=== PATIENT | female | born 1960 | race Caucasian/White ===

== ENCOUNTER 2025-02-14 16:53 | Observation (INO) | payer MEDICARE, OTHER ==
[2025-02-14] MEDS: MORPHINE SULFATE 4 MG/ML SYRINGE IV STA ×2 (17:07→21:30)
--- NOTE | 2025-02-14 17:24 | ED ---
Extremity Problem HPI - General Stated complaint: Fall-Left Ankle Injury Time Seen by Provider: 02/14/25 16:56 Source: patient, EMS Mode of arrival: EMS Limitations: no limitations - History of Present Illness Initial comments: This patient is a 64-year-old woman arriving by ambulance to have evaluation of left ankle pain. Patient states that she was trying to get onto the scooter, she put her leg over and in the process lost balance and fell injuring left lower leg/ankle. EMS was called, they provided the splint because the patient was not able to get up or bear weight. They gave analgesia through IV that they started and transported her here. The patient denies weakness or numbness distal to the injury. She denies any other injury in the fall. MD Complaint: extremity pain -: minutes(s) Location: left, lower extremity History of Same: No Radiation: none Quality: sharp Consistency: constant Improves with: other (Splinting) Worsens with: other (Movement) Associated Symptoms: denies other symptoms - Related Data Home Medications Medication Instructions Recorded Confirmed Cariprazine HCl [Vraylar] 4.5 mg PO DAILY 02/15/25 02/15/25 Losartan Potassium 50 mg PO DAILY 02/15/25 02/15/25 Sertraline [Zoloft] 200 mg PO DAILY 02/15/25 02/15/25 Valbenazine Tosylate [Ingrezza] 80 mg PO DAILY 02/15/25 02/15/25 buPROPion XL [Wellbutrin XL] 300 mg PO DAILY 02/15/25 02/15/25 methocarbamoL [Robaxin-750] 1,500 mg PO QID PRN 02/15/25 02/15/25 Previous Rx's Medication Instructions Recorded HYDROcodone/APAP 5-325MG [[place] 1 tab PO Q4HR PRN 3 Days #18 tab 02/14/25 5-325] Apixaban [Eliquis] 2.5 mg PO BID #70 tab 02/17/25 Omeprazole 20 mg PO DAILY #30 tab 02/17/25 Sennosides-Docusate Sodium 1 tab PO BID PRN #60 tablet 02/17/25 [Senokot-S] Allergies Allergy/AdvReac Type Severity Reaction Status Date / Time Botulinum Toxin Allergy Anaphylaxis Verified 02/15/25 10:34 diclofenac [From Cataflam] Allergy Anaphylaxis Verified 02/15/25 10:34 risperidone [From Risperdal] Allergy Anaphylaxis Verified 02/15/25 10:34 gabapentin AdvReac Unknown Verified 02/15/25 10:34 trazodone AdvReac Unknown Verified 02/15/25 10:34 Review of Systems ROS Statement: Those systems with pertinent positive or pertinent negative responses have been documented in the HPI. ROS Other: All systems not noted in ROS Statement are negative. Constitutional: Denies: fever, chills, weakness Respiratory: Denies: cough, dyspnea Cardiovascular: Denies: chest pain, palpitations Gastrointestinal: Denies: abdominal pain, vomiting Musculoskeletal: Reports: joint swelling, arthralgia. Denies: back pain Skin: Denies: rash Neurological: Denies: headache, weakness, numbness, paresthesias Past Medical History Past Medical History: COPD, Hyperlipidemia, Hypertension History of Any Multi-Drug Resistant Organisms: None Reported Past Surgical History: Appendectomy, Cholecystectomy, Joint Replacement, Orthopedic Surgery Additional Past Surgical History / Comment(s): Partial hysterectomy, double knee replacement Past Psychological History: Anxiety, Depression, Schizoaffective Disorder Smoking Status: Vaper Past Alcohol Use History: Rare Past Drug Use History: None Reported General Exam Limitations: no limitations General appearance: alert, in no apparent distress Head exam: Present: atraumatic, normocephalic Eye exam: Present: normal appearance Neck exam: Present: normal inspection, full ROM. Absent: tenderness Respiratory exam: Present: normal lung sounds bilaterally. Absent: respiratory distress, wheezes, rales, rhonchi, stridor, chest wall tenderness Cardiovascular Exam: Present: regular rate, normal rhythm, normal heart sounds. Absent: systolic murmur, diastolic murmur, rubs, gallop GI/Abdominal exam: Present: soft. Absent: distended, tenderness, guarding, rebound Left Hip exam: Present: normal inspection. Absent: tenderness, swelling Upper Leg exam: Present: normal inspection. Absent: tenderness, swelling Knee exam: Present: normal inspection. Absent: tenderness, swelling Ankle exam: Present: deformity Foot/Toe exam: Present: normal inspection. Absent: tenderness, swelling, la ceration, deformity Neurovascular tendon exam: Present: no vascular compromise. Absent: pulse deficit, abnormal cap refill, motor deficit, sensory deficit, tendon deficit Course Vital Signs 0602/14/25 02/14/25 16:59 18:14 18:40 Temperature 98.0 F Pulse Rate 107 H 86 120 H Respiratory 18 20 18 Rate Blood Pressure 101/85 123/71 110/50 O2 Sat by Pulse 100 95 100 Oximetry 02/14/25 02/14/25 02/14/25 18:46 18:48 18:51 Temperature Pulse Rate 100 100 98 Respiratory 18 18 18 Rate Blood Pressure 66/30 95/63 101/61 O2 Sat by Pulse 100 100 100 Oximetry 02/14/25 02/14/25 02/14/25 20:00 21:00 22:00 Temperature Pulse Rate 104 H 100 100 Respiratory 18 18 18 Rate Blood Pressure 102/72 101/65 91/65 O2 Sat by Pulse 100 98 100 Oximetry 02/14/25 02/15/25 23:42 01:01 Temperature Pulse Rate 93 100 Respiratory 18 20 Rate Blood Pressure 104/76 98/59 O2 Sat by Pulse 97 Oximetry Procedures - Orthopedic Fracture Reduction Fracture #1 Consent Obtained: written consent Side: left Fracture Reduction Location: tibia, fibula Analgesia: procedural sedation Technique: direct manipulation Post Reduction X-rays Demonstrate: other Post-Reduction Neuro Exam: intact Post-Reduction Vascular Exam: intact Splint Applied: Yes Patient Tolerated Procedure: no complications - Procedural Sedation *Risks,benefits, and alternative therapies discussed?: Yes *Patient indicates understanding of risk/benefit discussion?: Yes *Indications: fracture/dislocation reduction *Previous Adverse Reaction to Anesthesia/Sedation?: No Reason Test Not Complete:: Age > 60 *ASA Class: II *Mallampati Airway Score: 3 Preparation: clinical lab assistant applied, pulse oximeter, capnometry used, supplemental O2 applied, suction/airway equipment at bedside, IV secured IV Propofol Dose (mgs): 100 Complications: none Patient Tolerated Procedure: well, no complications Medical Decision Making - Medical Decision Making The patient had x-ray of the distal tib-fib that did reveal fracture of the a nkle and also midshaft fibular fracture with moderate posterolateral displacement The patient had 2 subsequent postreduction films that I interpreted as not markedly improved reduction. Was pt. sent in by a medical professional or institution (, PA, SHIP BOSS, urgent care, hospital, or half-way...) When possible be specific @ -[No] Did you speak to anyone other than the patient for history (EMS, parent, family, police, friend...)? What history was obtained from this source @ -[No] Did you review nursing and triage notes (agree or disagree)? Why? @ -[I reviewed and agree with nursing and triage notes] Were old charts reviewed (outside hosp., previous admission, EMS record, old EKG, old radiological studies, urgent care reports/EKG's, half-way records)? Report findings @ -[No old charts were reviewed] Differential Diagnosis (chest pain, altered mental status, abdominal pain women, abdominal pain men, vaginal bleeding, weakness, fever, dyspnea, syncope, headache, dizziness, GI bleed, back pain, seizure, CVA, palpatations, mental health, musculoskeletal)? @ -Differential Musculoskeletal Muscular strain, contusion, ligament sprain, fracture, arthritis, septic arthritis, bursitis, cellulitis, muscle spasm, nerve compression, DVT, arterial occlusion, herpes zoster, electrolyte abnormality, tumor.... This is not meant to be in all inclusive list EKG interpreted by me (3pts min.). @ -[As above] X-rays interpreted by me (1pt min.). @ -[I interpreted as above CT interpreted by me (1pt min.). @ -[None done] U/S interpreted by me (1pt. min.). @ -[None done] What testing was considered but not performed or refused? (CT, X-rays, U/S, labs)? Why? @ -[None] What meds were considered but not given or refused? Why? @ -[None] Did you discuss the management of the patient with other professionals (professionals i.e. , PA, SHIP BOSS, lab, RT, psych nurse, delinquency prevention social worker, hydraulic specialist, teacher, customer service officer, case manager specialist)? Give summary @ -[I discussed the case with Dr. Braga who is the orthopedic surgeon on- call and his recommendation was to admit the patient to have the OR reduction with either internal fixation or external fixator as a temporizing measure. I discussed this with the patient who did agree to stay. CT scans were ordered for surgical planning Was smoking cessation discussed for >3mins.? @ -[No] Was critical care preformed (if so, how long)? @ -[No] Were there social determinants of health that impacted care today? How? (Homelessness, low income, unemployed, alcoholism, drug addiction, transportation, low edu. Level, literacy, decrease access to med. care, senior care, rehab)? @ -[No] Was there de-escalation of care discussed even if they declined (Discuss DNR or withdrawal of care, Hospice)? DNR status @ -[No] What co-morbidities impacted this encounter? (DM, HTN, Smoking, COPD, CAD, Cancer, CVA, ARF, Chemo, Hep., AIDS, mental health diagnosis, sleep apnea, morbid obesity)? @ -[None] Was patient admitted / discharged? Hospital course, mention meds given and route, prescriptions, significant lab abnormalities, going to OR and other perti nent info. @ -[Patient is admitted to have further orthopedic care. Undiagnosed new problem with uncertain prognosis? @ -[No] Drug Therapy requiring intensive monitoring for toxicity (Heparin, Nitro, Insulin, Cardizem)? @ -[No] Were any procedures done? @ -[Yes 2 attempts at reduction and then splinting were performed by myself without adequate anatomic reduction Diagnosis/symptom? @ -[Acute ankle fracture Acute midshaft fibula fracture Acute, or Chronic, or Acute on Chronic? @ -[Acute Uncomplicated (without systemic symptoms) or Complicated (systemic symptoms)? @ -[Uncomplicated Side effects of treatment? @ -[No] Exacerbation, Progression, or Severe Exacerbation? @ -[No] Poses a threat to life or bodily function? How? (Chest pain, [place], PR, pneumonia, PE, COPD, DKA, ARF, appy, cholecystitis, CVA, Diverticulitis, Homicidal, Suicidal, threat to staff... and all critical care pts) @ -[Yes there is threat to limb function without appropriate orthopedic care All treatments are based on ideal body weight as in ED triage - Lab Data Result diagrams: 02/16/25 03:24 02/16/25 03:24 Disposition Clinical Impression: Fibula fracture, Ankle fracture Disposition: HOME SELF-CARE Condition: Good Is patient prescribed a controlled substance at d/c from ED?: Yes When asked, does pt state using other controlled substances?: No If prescribed controlled substance>3 days was MAPS reviewed?: Prescribed <3 Days If opioid is for acute pain is fill amount 7 days or less?: Yes If Rx opioid, was Start Talking consent form obtained?: Yes
--- NOTE | 2025-02-14 18:19 | XR ---
EXAMINATION TYPE: XR tibia fibula LT DATE OF EXAM: 02/14/2025 5:33 PM COMPARISON: None. CLINICAL INDICATION: Female, 64 years old with history of fall injury, pain TECHNIQUE: 2 view(s) obtained. FINDINGS: There is a left knee prosthesis present. There is an oblique fracture of the proximal diaphyseal left fibula. There is fracture of the medial malleolus and lateral malleolus with displacement of the talus nearly completely off of the distal ti arlene. IMPRESSION: 1. Fracture of the distal medial lateral malleoli with subluxation of the talus laterally. 2. Additional oblique fracture proximal diaphyseal fibula. [facility], , 02/14/2025 6:17 PM
--- NOTE | 2025-02-14 18:21 | XR ---
EXAMINATION TYPE: XR ankle limited LT DATE OF EXAM: 02/14/2025 5:33 PM COMPARISON: None. CLINICAL INDICATION: Female, 64 years old with history of fall injury, pain TECHNIQUE: 3 view(s) obtained. FINDINGS: There is lateral subluxation with nearly complete dislocation of the talus laterally in relation to t he distal tibia. There is avulsion of the medial malleolus which accompanies the talus and displaceme nt on the lateral malleolus distal fracture fragment laterally. Overlying soft tissue swelling is pre sent. Posterior tibial fracture is not identified. IMPRESSION: 1. Fracture of the medial and lateral malleolar with near complete dislocation of the talus laterall y. [facility], , 02/14/2025 6:18 PM
[2025-02-14] MEDS: PROPOFOL 10 MG/ML 20 ML VIAL IV ONE ×2 (18:40→21:51)
--- NOTE | 2025-02-14 20:03 | XR ---
EXAMINATION TYPE: XR ankle limited LT DATE OF EXAM: 02/14/2025 7:27 PM COMPARISON: None. CLINICAL INDICATION: Female, 64 years old with history of post reduction, pain TECHNIQUE: 2 view(s) obtained. FINDINGS: Partial reduction of a dislocation of the talus. The medial malleolus remains displaced medially betw een the talus and the tibia. There is partial reduction of the subluxation. In the lateral projection there may be some posterior dislocation of the talus in relation to the tibia. IMPRESSION: 1. Partial reduction of the subluxed talus. Talus currently may be partially posteriorly subluxed wi th incomplete reduction towards the medial aspect of the tibia. The medial malleolar fracture fragmen t may lie between the talus and the tibia [facility], , 02/14/2025 8:01 PM
[2025-02-14] MEDS ORDERED: MAG HYDROX/AL HYDROX/SIMETH 30 ML CUP PO PRN (22:19)
[2025-02-14] MEDS ORDERED: NALOXONE 0.4 MG/ML 1 ML VIAL IV PRN (22:19)
[2025-02-14] MEDS ORDERED: TEMAZEPAM 15 MG CAP PO PRN (22:19)
[2025-02-14] MEDS ORDERED: ACETAMINOPHEN TAB 325 MG TAB PO PRN (22:19)
[2025-02-14 23:36] LABS: Basophils # (A) 0.06 10*3/uL (0.00-0.10); Basophils % (A) 0.6 %; Eosinophils # (A) 0.01 10*3/uL (0.04-0.35); Eosinophils % (A) 0.1 %; HCT 36.9 % (37.2-46.3); HGB 11.8 g/dL (12.0-15.0); Lymphocytes # (A) 0.83 10*3/uL (0.90-5.00); Lymphocytes % (A) 8.6 %; MCH 29.1 pg (27.0-32.0); MCV 91.1 fL (80.0-97.0); Mean Platelet Volume 10.6 fL (9.5-12.2); Monocytes % (A) 7.3 %; Neutrophils # (A) 8.03 10*3/uL (1.80-7.70); Neutrophils % (A) 83.2 %; Platelet Count 147 10*3/uL (140-440); RBC 4.05 10*6/uL (4.10-5.20); RDW 13.9 % (11.5-14.5); WBC 9.65 10*3/uL (4.50-10.00)
[2025-02-14 23:48] LABS: ALT 142 U/L (4-34); AST 380 U/L (14-36); African American GFR (CKD) >90 (>60 ml/min/1.73 sqM); Albumin 3.2 g/dL (3.5-5.0); Alkaline Phosphatase 145 U/L (38-126); Anion Gap 7 mmol/L; Blood Urea Nitrogen 13 mg/dL (7-17); Calcium 8.6 mg/dL (8.4-10.2); Carbon Dioxide 23 mmol/L (22-30); Chloride 106 mmol/L (98-107); Glucose 100 mg/dL (74-99); Non-African American GFR(CKD) >90 (>60 ml/min/1.73 sqM); Potassium 4.1 mmol/L (3.5-5.1); Sodium 136 mmol/L (137-145); Total Bilirubin 1.2 mg/dL (0.2-1.3); Total Protein 5.7 g/dL (6.3-8.2)
--- NOTE | 2025-02-14 23:52 | XR ---
EXAM: XR Left Ankle Complete, 3 Views CLINICAL HISTORY: post reduction TECHNIQUE: Frontal, lateral and oblique views of the left ankle. COMPARISON: Same day at 5:25 p.m. and 7:19 p.m. current exam has a time stamp of 02/14/25, 9:59 p.m. FINDINGS: Bones/joints: Cast obscures bone and soft tissue details. Talus remains laterally subluxed relative to plafond by about 12 mm, better seen on CT from today. Trimalleolar fracture is again noted. Soft tissues: Associated surrounding soft tissue swelling without gas. IMPRESSION: Talus remains laterally subluxed relative to plafond by about 12 mm, better seen on CT from today. Trimalleolar fracture is again noted.
[2025-02-14] MEDS: SODIUM CHLORIDE 0.9% 1,000 ML IV SCH (23:54)
[2025-02-15 00:14] LABS: INR 0.9 (<1.2); Prothrombin Time 10.4 sec (10.0-12.5)
--- NOTE | 2025-02-15 00:22 | CT ---
EXAM: CT Left Lower Extremity Without Intravenous Contrast, Ankle CLINICAL HISTORY: eval fracture TECHNIQUE: Axial computed tomography images of the left ankle without intravenous contrast. Coronal and sagittal reconstructions are performed. CTDI is 8. 5 mGy and DLP is 276 mGy-cm. This CT exam was performed using one or more of the following dose reduction techniques: automated exposure control, adjustment of the mA and/or kV according to patient size, and/or use of iterative reconstruction technique. 478 images COMPARISON: No relevant prior studies available. FINDINGS: Bones/joints: Talus remains laterally subluxed by about 13 mm and dorsally subluxed by about 9 mm. Trimalleolar fractures. Soft tissues: Associated soft tissue swelling without gas. IMPRESSION: 1. Talus remains laterally subluxed by about 13 mm and dorsally subluxed by about 9 mm. 2. Trimalleolar fractures.
[2025-02-15 00:30] LABS: Partial Thromboplastin Time 20.3 sec (22.0-30.0)
[2025-02-15] MEDS: MORPHINE SULFATE 4 MG/ML SYRINGE IV PRN (02:03)
[2025-02-15] MEDS: PANTOPRAZOLE 40 MG/10 ML VIAL IV SCH (08:07)
[2025-02-15 09:36] LABS: HCT 36.5 % (37.2-46.3); HGB 11.6 g/dL (12.0-15.0); MCH 29.4 pg (27.0-32.0); MCHC 31.8 g/dL (32.0-37.0); MCV 92.6 fL (80.0-97.0); Mean Platelet Volume 10.9 fL (9.5-12.2); Platelet Count 153 10*3/uL (140-440); RBC 3.94 10*6/uL (4.10-5.20); RDW 13.9 % (11.5-14.5); WBC 5.38 10*3/uL (4.50-10.00)
[2025-02-15 09:52] LABS: ALT 272 U/L (4-34); AST 408 U/L (14-36); African American GFR (CKD) >90 (>60 ml/min/1.73 sqM); Albumin 3.3 g/dL (3.5-5.0); Albumin/Globulin Ratio 1.4; Alkaline Phosphatase 183 U/L (38-126); Anion Gap 5 mmol/L; Blood Urea Nitrogen 11 mg/dL (7-17); Calcium 8.5 mg/dL (8.4-10.2); Carbon Dioxide 27 mmol/L (22-30); Chloride 106 mmol/L (98-107); Globulin 2.4 g/dL; Glucose 93 mg/dL (74-99); Magnesium 1.9 mg/dL (1.6-2.3); Non-African American GFR(CKD) 82 (>60 ml/min/1.73 sqM); Potassium 3.9 mmol/L (3.5-5.1); Sodium 138 mmol/L (137-145); Total Bilirubin 2.2 mg/dL (0.2-1.3); Total Protein 5.7 g/dL (6.3-8.2)
--- NOTE | 2025-02-15 11:04 | P.CONS ---
History of Present Illness - Reason for Consult Consult date: 02/15/25 Medical Management Requesting physician: Owen Braga - History of Present Illness History of Presenting Illness: Patient is a pleasant 64-year-old female with a past medical history of hyper tension, COPD, anxiety with depression, schizoaffective disorder, and nicotine use via vaping. She presented to our facility on 02/14/2025 status post fall with left ankle pain. She underwent evaluation in the emergency department. Vital signs upon arrival show blood pressure 101/85, heart rate 107, respiratory rate 18, temp 98.0 F, and SpO2 100% on room air. X-ray left tib-fib showing fracture of the distal medial lateral malleoli with subluxation of the talus laterally and an additional oblique fracture of the proximal diaphyseal fibula. X-ray ankle completed showing fracture of the medial and tibial malleoli are with near complete dislocation of the talus laterally. Attempts were made at closed reduction in the emergency department unsuccessful. Patient underwent a CT left ankle which revealed talus remains laterally subluxed about 13 mm and dorsally subluxed about 9 mm along with trimalleolar fractures. Patient was admitted under orthopedic surgery team and we were consulted for medical management. Labs were completed and reviewed. CBC showing normocytic anemia with hemoglobin of 11.8. Coagulation profile showing a low PTT of 20.3. BMP showing sodium 136 and glucose of 100. Liver profile showing transaminitis with AST of 380, ALT of 142, and alkaline phosphatase of 145. Patient is scheduled to undergo ORIF of left ankle later today with Dr. Braga. Review of systems: Pertinent positives and negatives as discussed in HPI, a complete review of systems was performed and all other systems are negative. Physical exam: Vital signs reviewed and stable. General: Nontoxic, no distress and appears stated age. Derm: Skin warm and dry, normal coloration for ethnicity. Head: Atraumatic, normocephalic and symmetric. Eyes: EOM's intact, no lid lag, and anicteric sclera Mouth: no lip lesions, mucus membranes moist Cardiovascular: regular rate and rhythm with normal S1S2, no murmur, positive posterior tibial pulses bilaterally, and cap refill < 2 seconds. Lungs: Respirations even, regular, and unlabored on room air. Lungs CTA bilaterally, no rhonchi, no rales, no wheezing, and no accessory muscle usage. Abdominal: soft, nontender to palpation, no guarding, no appreciable organomegaly Ext: No gross muscle atrophy, no edema, no contractures. Left lower extremity in Ortho-Glass splint. Patient reports movement and sensation intact to toes. Neuro: Speech clear, face symmetrical and CN II-XII grossly intact with no noted focal neuro deficits Psych: Alert and oriented to person, place, time, and situation. Appropriate and pleasant affect. Assessment and Plan of Care: Trimalleolar fracture with complete dislocation and proximal diaphyseal fibula - Patient is scheduled for ORIF with Dr. Braga later today. - Patient is at an increased risk to undergo surgical procedure however as discussed with patient and orthopedic surgeon in detail, there are no absolute contraindications for patient to undergo urgent surgical stabilization/repair of dislocated ankle. Hyperbilirubinemia with transaminitis, unclear etiology - Patient reports she was previously told years ago that she had some elevation in her liver enzymes but never followed up. She denies having any abdominal pain or discomfort but did report only mild tenderness upon palpation to epigastric region. - Order placed for repeat labs to evaluate if stable or worsening and upon follow-up liver profile showing worsening transaminitis and new hyperbilirubinemia with total bili of 2.2, AST of 408, ALT of 272, and alkaline phosphatase of 183. - Order placed for CT abdomen and pelvis which revealed mild biliary dilation with a prominent common bile duct. - Consult placed to log rafter and discussed plan of care with gastroenterology CIRCULAR CLERK recommending patient be n.p.o. after midnight for possible ERCP tomorrow. Gastroenterology CIRCULAR CLERK stated from GI perspective patient may proceed without any absolute contraindications with planned ORIF of left ankle as scheduled later today with Dr. Braga. Hypertension Vital signs currently stable with blood pressure 105/68 heart rate of 86. Continue to monitor vital signs closely and patient to resume daily medication r egimen with losartan 50 mg daily. Anxiety with depression Schizoaffective disorder Continue daily medication regimen with sertraline 200 mg daily, Vraylar 4.5 mg daily, Wellbutrin 300 mg daily, and Ingrezza 80 mg daily. COPD, not in acute exacerbation - Patient denies use of home inhalers. Does admit to continued vaping but declines wanting nicotine patch at this time. - Encourage use of incentive spirometry during postoperative period. Data and imaging reviewed: As stated above in HPI Thank you for allowing us to participate in the care of this pleasant patient. Do not hesitate to contact us with questions. Someone can be reached from the [facility] hospitalist group all hours of the day at [phone] or via perfect serve. Patient was seen independently by Nurse Practitioner. This document was prepared using [employer] dictation software. Please allow for errors in mammography technician while rare they do occur. Jose Mandel NP rendered care for this patient independently, reviewed the findings and plan as documented in the note above and agree with plan. I did not physically speak with or examine the patient on this date. Past Medical History Past Medical History: COPD, Hyperlipidemia, Hypertension History of Any Multi-Drug Resistant Organisms: None Reported Past Surgical History: Appendectomy, Cholecystectomy, Joint Replacement, Orthopedic Surgery Additional Past Surgical History / Comment(s): Partial hysterectomy, double knee replacement Past Psychological History: Anxiety, Depression, Schizoaffective Disorder Smoking Status: Vaper Past Alcohol Use History: Daily Past Drug Use History: None Reported Medications and Allergies Home Medications Medication Instructions Recorded Confirmed Type HYDROcodone/APAP 5-325MG [[place] 1 tab PO Q4HR PRN 3 Days #18 tab 02/14/25 Rx 5-325] Cariprazine HCl [Vraylar] 4.5 mg PO DAILY 02/15/25 02/15/25 History Losartan Potassium 50 mg PO DAILY 02/15/25 02/15/25 History Sertraline [Zoloft] 200 mg PO DAILY 02/15/25 02/15/25 History Valbenazine Tosylate [Ingrezza] 80 mg PO DAILY 02/15/25 02/15/25 History buPROPion XL [Wellbutrin XL] 300 mg PO DAILY 02/15/25 02/15/25 History methocarbamoL [Robaxin-750] 1,500 mg PO QID PRN 02/15/25 02/15/25 History Allergies Allergy/AdvReac Type Severity Reaction Status Date / Time Botulinum Toxin Allergy Anaphylaxis Verified 02/15/25 10:34 diclofenac [From Cataflam] Allergy Anaphylaxis Verified 02/15/25 10:34 risperidone [From Risperdal] Allergy Anaphylaxis Verified 02/15/25 10:34 gabapentin AdvReac Unknown Verified 02/15/25 10:34 trazodone AdvReac Unknown Verified 02/15/25 10:34 Physical Exam Vitals: Vital Signs Temp Pulse Pulse Resp BP BP BP 02/15/25 07:35 86 18 105/68 02/15/25 02:12 20 02/15/25 01:26 97.7 F 94 18 112/60 02/15/25 01:01 100 20 98/59 02/14/25 23:42 93 18 104/76 02/14/25 22:00 100 18 91/65 02/14/25 21:00 100 18 101/65 02/14/25 20:00 104 H 18 102/72 02/14/25 18:51 98 18 101/61 02/14/25 18:48 100 18 95/63 02/14/25 18:46 100 18 66/30 02/14/25 18:40 120 H 18 110/50 02/14/25 18:14 86 20 123/71 02/14/25 16:59 98.0 F 107 H 18 101/85 Pulse Ox 02/15/25 07:35 93 L 02/15/25 02:12 02/15/25 01:26 99 02/15/25 01:01 02/14/25 23:42 97 02/14/25 22:00 100 02/14/25 21:00 98 02/14/25 20:00 100 02/14/25 18:51 100 02/14/25 18:48 100 02/14/25 18:46 100 02/14/25 18:40 100 02/14/25 18:14 95 02/14/25 16:59 100 Intake and Output 02/14/25 02/15/25 02/15/25 22:59 06:59 14:59 Output Total 400 Balance -400 Output: Urine 400 Other: Voiding Method External Catheter Weight 136.078 kg 136.078 kg Results CBC & Chem 7: 02/15/25 08:48 02/15/25 08:48 Labs: Abnormal Lab Results - Last 24 Hours (Table) 02/14/25 02/14/25 02/14/25 Range/Units 23:18 23:18 23:18 RBC 4.05 L (4.10-5.20) 10*6/uL Hgb 11.8 L (12.0-15.0) g/dL Hct 36.9 L (37.2-46.3) % Neutrophils # 8.03 H (1.80-7.70) 10*3/uL Lymphocytes # 0.83 L (0.90-5.00) 10*3/uL Eosinophils # 0.01 L (0.04-0.35) 10*3/uL APTT 20.3 L (22.0-30.0) sec Sodium 136 L (137-145) mmol/L Glucose 100 H (74-99) mg/dL AST 380 H (14-36) U/L ALT 142 H (4-34) U/L Alkaline Phosphatase 145 H (38-126) U/L Total Protein 5.7 L (6.3-8.2) g/dL Albumin 3.2 L (3.5-5.0) g/dL
--- NOTE | 2025-02-15 12:08 | CT ---
EXAMINATION TYPE: CT abdomen pelvis wo con DATE OF EXAM: 02/15/2025 11:39 AM COMPARISON: None. CLINICAL INDICATION: Female, 64 years old with history of incr transaminitis, elevated bili epigastr ic pain, elevated bili and epigastric pain TECHNIQUE: Axial images were obtained from above the diaphragm to the pubic rami in the axial plane a t 5 mm thick sections. Reconstructed images are reviewed on the computer in the coronal plane. CONTRAST: mL of . Study performed without Oral Contrast DLP: 2136.4 mGycm, Automated exposure control for dose reduction was used. FINDINGS: Limited CT sections are obtained the lung bases. The lung bases are clear. CT ABDOMEN: There is a small periumbilical hernia containing mesenteric fat. No loops of bowel are in volved. Liver: Some faint biliary dilatation may be present slightly greater on the left. Common bile ductr m ay be somewhat prominent 1.2 cm. Normal up to 1.0 cm in a postcholecystectomy patient. Consider right upper quadrant ultrasound for additional evaluation. Spleen: Normal Pancreas: Normal Adrenal glands: The adrenal glands are normal. Gallbladder: Not identified. Correlate with the surgical history. Kidneys: No masses are evident. No hydronephrosis is present. No cysts are present. No renal stone s are evident. Aorta: Vascular calcification is within the aorta. Inferior vena cava: Normal. CT PELVIS: Loops of bowel within the abdomen and pelvis are normal. There are loops of bowel which are incom pletely distended or lack oral contrast limiting their evaluation. Appendix: There appears to be the appendix is normal as visualized. No suspicious dilated tubular str uctures or inflammatory changes are evident. Urinary bladder: Normal. Genitourinary structures: Uterus and ovaries are not identified. Osseous structures: No suspicious lytic or sclerotic lesions. IMPRESSION: 1. There may be some mild biliary dilatation present with a prominent common bile duct. The gallblad rashel is not clearly identified. Consider additional evaluation with right upper quadrant abdomen ultra sound. [facility], , 02/15/2025 12:06 PM
[2025-02-15] MEDS: LOSARTAN 50 MG TAB PO SCH (12:44)
[2025-02-15] MEDS: buPROPion XL 300 MG TAB.ER.24H PO SCH (12:44)
[2025-02-15] MEDS: IV FLUID CONTINUATION 1,000 ML IV ONE (13:41)
[2025-02-15] MEDS: ONDANSETRON 4 MG/2 ML VIAL IVP PRN (13:55)
--- NOTE | 2025-02-15 14:03 | P.HPOR ---
History of Present Illness The patient is a very pleasant 64-year-old female with a medical history significant for having a BMI of 48.4 and schizoaffective disorder who was admitted under my care with a displaced left trimalleolar ankle fracture. The patient states that yesterday she was trying to get in her car when she fell. She immediately injured her left ankle. She was brought to the ER where x-rays showed an ankle fracture dislocation. After several unsuccessful attempts at closed reduction and splinting I was called. Both ER doctor and myself felt that due to the patient's unstable ankle fracture and BMI she was unsafe to discharge home. I met with the patient this afternoon to discuss her injury and treatment. The patient normally lives at home with her son. She has bilateral knee replacements done 8 years ago and says they feel "unsteady." She denies alcohol use. Past Medical History Past Medical History: COPD, Hyperlipidemia, Hypertension History of Any Multi-Drug Resistant Organisms: None Reported Past Surgical History: Appendectomy, Cholecystectomy, Joint Replacement, Orthopedic Surgery Additional Past Surgical History / Comment(s): Partial hysterectomy, double knee replacement Past Psychological History: Anxiety, Depression, Schizoaffective Disorder Smoking Status: Vaper Past Alcohol Use History: Daily Past Drug Use History: None Reported Medications and Allergies Home Medications Medication Instructions Recorded Confirmed Type HYDROcodone/APAP 5-325MG [Talmo 1 tab PO Q4HR PRN 3 Days #18 tab 02/14/25 Rx 5-325] Cariprazine HCl [Vraylar] 4.5 mg PO DAILY 02/15/25 02/15/25 History Losartan Potassium 50 mg PO DAILY 02/15/25 02/15/25 History Sertraline [Zoloft] 200 mg PO DAILY 02/15/25 02/15/25 History Valbenazine Tosylate [Ingrezza] 80 mg PO DAILY 02/15/25 02/15/25 History buPROPion XL [Wellbutrin XL] 300 mg PO DAILY 02/15/25 02/15/25 History methocarbamoL [Robaxin-750] 1,500 mg PO QID PRN 02/15/25 02/15/25 History Allergies Allergy/AdvReac Type Severity Reaction Status Date / Time Botulinum Toxin Allergy Anaphylaxis Verified 02/15/25 10:34 diclofenac [From Cataflam] Allergy Anaphylaxis Verified 06/24/25 10:34 risperidone [From Risperdal] Allergy Anaphylaxis Verified 02/15/25 10:34 gabapentin AdvReac Unknown Verified 02/15/25 10:34 trazodone AdvReac Unknown Verified 02/15/25 10:34 Physical Examination The patient resting her [facility]. She is alert and able to answer questions. Her head is normocephalic and atraumatic. Her abdomen is obese. Her bilateral upper extremities and right lower extremity are without deformity. A focused exam of the left lower extremity was conducted. There is a splint on the left leg. There is a healed incision over the anterior aspect of the knee. Her toes are warm and well-perfused with brisk capillary refill. She can actively plantarflex and dorsiflex her ankle and her toes. Results X-rays and CT scan of the ankle knee show a displaced trimalleolar ankle fracture dislocation. There is also a proximal fibula fracture and a total knee replacement with a short stem. - Labs Labs: Abnormal Lab Results - Last 24 Hours (Table) 02/14/25 02/14/25 02/14/25 Range/Units 23:18 23:18 23:18 RBC 4.05 L (4.10-5.20) 10*6/uL Hgb 11.8 L (12.0-15.0) g/dL Hct 36.9 L (37.2-46.3) % MCHC (32.0-37.0) g/dL Neutrophils # 8.03 H (1.80-7.70) 10*3/uL Lymphocytes # 0.83 L (0.90-5.00) 10*3/uL Eosinophils # 0.01 L (0.04-0.35) 10*3/uL APTT 20.3 L (22.0-30.0) sec Sodium 136 L (137-145) mmol/L Glucose 100 H (74-99) mg/dL Total Bilirubin (0.2-1.3) mg/dL AST 380 H (14-36) U/L ALT 142 H (4-34) U/L Alkaline Phosphatase 145 H (38-126) U/L Total Protein 5.7 L (6.3-8.2) g/dL Albumin 3.2 L (3.5-5.0) g/dL 02/15/25 02/15/25 Range/Units 08:48 08:48 RBC 3.94 L (4.10-5.20) 10*6/uL Hgb 11.6 L (12.0-15.0) g/dL Hct 36.5 L (37.2-46.3) % MCHC 31.8 L (32.0-37.0) g/dL Neutrophils # (1.80-7.70) 10*3/uL Lymphocytes # (0.90-5.00) 10*3/uL Eosinophils # (0.04-0.35) 10*3/uL APTT (22.0-30.0) sec Sodium (137-145) mmol/L Glucose (74-99) mg/dL Total Bilirubin 2.2 H (0.2-1.3) mg/dL AST 408 H (14-36) U/L ALT 272 H (4-34) U/L Alkaline Phosphatase 183 H (38-126) U/L Total Protein 5.7 L (6.3-8.2) g/dL Albumin 3.3 L (3.5-5.0) g/dL H & H 02/14/25 02/15/25 Range/Units 23:18 08:48 Hgb 11.8 L 11.6 L (12.0-15.0) g/dL Hct 36.9 L 36.5 L (37.2-46.3) % Coagulation 02/14/25 Range/Units 23:18 INR 0.9 (<1.2) Result Diagrams: 02/15/25 08:48 02/15/25 08:48 Assessment and Plan Assessment: Left trimalleolar ankle fracture dislocation with unsuccessful attempts at closed reduction and splinting Left proximal fibula fracture BMI 48.4 Prior left total knee arthroplasty Schizoaffective disorder Elevated liver enzymes Plan: I met with the patient to discuss treatment options. She had several attempts at closed reduction and splinting in the ER that were unsuccessful. Her ankle is still subluxed. The patient lives in [facility] and wishes to have definitive fixation closer to home and states she already has an established orthopedic surgery group there having previously had total knee replacements. We also discussed that swelling in the left ankle may prevent definitive fixation at this time. Given all this I think the patient would be best treated with closed reduction and application of an ankle spanning external fixator to allow resolution of swelling and definitive treatment closer to home. We discussed the procedure at length. The patient agrees with this and thinks it is in her best interest. We will plan for a closed reduction and ankle external fixator later today. She understands that she will need follow-up closer to home for definitive fixation. Time with Patient: Greater than 30
[2025-02-15] MEDS ORDERED: LIDOCAINE 4% LTA KIT (4 ML) TOPICAL ONE (14:05)
[2025-02-15] MEDS ORDERED: WATER FOR INJECTION, STERILE 10 ML VIAL IV ONE (14:05)
[2025-02-15] MEDS ORDERED: PHENYLEPHRINE-0.9% NACL SYG 1,000 MCG/10 ML SYRINGE ONE (14:05)
[2025-02-15] MEDS ORDERED: LIDOCAINE 2% (PF) 20 MG/ML 5 ML VIAL ONE (14:05)
[2025-02-15] MEDS ORDERED: GLYCOPYRROLATE 0.2 MG/ML 2 ML VIAL ONE (14:05)
[2025-02-15] MEDS ORDERED: ROCURONIUM 10 MG/ML (5 ML VIAL) IV ONE (14:05)
[2025-02-15] MEDS ORDERED: PROPOFOL 10 MG/ML 20 ML VIAL IV ONE (14:05)
[2025-02-15] MEDS ORDERED: fentaNYL (PF) 50 MCG/ML 2 ML AMP ONE (14:05)
[2025-02-15] MEDS ORDERED: SUCCINYLCHOLINE CHLORIDE 200 MG/10 ML VIAL IV ONE (14:05)
[2025-02-15] MEDS ORDERED: ePHEDrine 50 MG/ML 1 ML VIAL ONE (14:05)
[2025-02-15] MEDS: SODIUM CHLORIDE 0.9% 50 ML with ceFAZolin 3,000 MG IV ONE (14:09)
[2025-02-15] MEDS: LACTATED RINGERS 1,000 ML IV ONE (15:13)
--- NOTE | 2025-02-15 15:36 | P.OP ---
Date of Procedure: 02/15/25 Preoperative Diagnosis: 1. Closed left trimalleolar ankle fracture dislocation 2. Left proximal fibula fracture 3. BMI 48.4 4. Prior left total knee replacement 5. Schizoaffective disorder Postoperative Diagnosis: Same Procedure(s) Performed: 1. Application of left ankle spanning external fixator as part of a staged procedure 2. Closed reduction left ankle fracture dislocation Anesthesia: GETA Surgeon: Owen Braga Fun House Attendant #1: Clement Paris Estimated Blood Loss (ml): 25 IV fluids (ml): 300 Pathology: none sent Condition: stable Disposition: PACU Indications for Procedure: The patient is a very pleasant 64-year-old female with multiple medical issues including having a BMI of 48.4 who was getting into her car yesterday when she fell and injured her left ankle. She presented to our ER where several attempts at closed reduction and splinting were performed by the emergency department physician. After 3 attempts he was unable to reduce and keep the ankle reduced in a splint. I recommended admitting the patient under my care. This afternoon I met with her and discussed her injury. The patient lives in [facility] and would like to follow-up with her previously established orthopedic surgeon there. My recommendation was to reduce her ankle and place an ankle spanning external fixator to temporize her ankle and allow for resolution of soft tissue swelling. The patient agreed and requested this as she stated it was in her best interest. We discussed the potential risks and complications of an ankle external fixator including but is really limited to risks from anesthesia, superficial infection, deep infection, pin site complications including infection and/or fracture, subluxation or dislocation of the ankle, pressure sores, DVT, PE, other medical complications, and possibly loss of life or limb. The patient also understands that this is a temporizing procedure and she will need definitive fixation in 10 to 14 days. Description of Procedure: The patient was identified in preoperative holding and the correct left ankle was marked with my initials. I reviewed the consent form with the patient. All of her questions were answered. The patient was then brought back to the operating room by anesthesia. She was positioned on the OR table where general anesthetic and preoperative antibiotics were given. A tourniquet was not used during surgery. A bone foam ramp was placed onto the left leg to facilitate imaging. A foam pad was placed under the contralateral right leg and secured to the table with tape. Both arms were well-padded and placed at her side. A nonsterile 1015 drape was used to occlude the left leg. A presurgical scrub was performed using a chlorhexidine scrub brush and water. A timeout was then performed identifying the correct patient, operative extremity, and procedure. At this point the splint placed by the emergency department was removed. There was diffuse tense swelling with no wrinkling of the skin over both the medial and lateral malleolus. There was skin at risk over the medial malleolus with a small pressure blister forming. I began by performing a closed reduction of the ankle using the Tracy maneuver. Fluoroscopy was then used to assess the reduction. The ankle appeared to be relatively well reduced on a mortise and lateral view. The left leg was then prepped and draped in the standard sterile fashion. I began by using fluoroscopy to cheryl out the midshaft of the tibia. 2 stab incisions were made using the corresponding guide from the external fixator site. A drill was used to create threaded holes and then both pins were placed by hand engaging both cortices. Their position was checked with biplanar fluoroscopy. I then made a stab incision over the medial aspect of the ca lcaneus. Dissection was carried down with a hemostat. A centrally threaded transcalcaneal pin was then placed under fluoroscopic guidance. I then used the pin to bar clamps and graphite rods to create a delta frame. Gentle traction was pulled and fluoroscopy was used to verify reduction of the ankle. All pins were then tightened. A kickstand was placed under the posterior ankle to prevent pressure sore. Final fluoroscopic images were taken including a mortise which showed anatomic reduction of the ankle and a true lateral which showed the talus nicely centered under the plafond. Proximally the pin sites looked appropriately positioned. Sterile sponges were soaked in Betadine and then cut and placed around the pin sites followed by Geovany. An Ravindra wrap was applied over the ankle. The patient was then transferred off of the operating table, extubated, and brought to recovery having tolerated the procedure well. Clement Paris PA-C was required as a skilled assistant plant control operator for patient positioning, draping, retraction, and application of dressings. PLAN: The patient is to be non-weight bearing on her left leg. DVT prophylaxis with Eliquis 2.5 mg BID given the patient's BMI and history of fracture. Leave dressing in place. The patient is ok to discharge from an orthopaedic standpoint. She has already started reaching out to her PCP to arrange follow-up in her home town of [facility] with an orthopaedic surgeon to discuss definitive fixation of her ankle fracture.
[2025-02-15] MEDS ORDERED: MAGNESIUM HYDROXIDE 2,400 MG/30 ML CUP PO PRN (15:40)
[2025-02-15] MEDS ORDERED: hydrOXYzine pamoate 25 MG CAP PO PRN (15:40)
[2025-02-15] MEDS ORDERED: HYDROmorphone 0.5 MG/0.5 ML SYRINGE IVP PRN (15:40)
[2025-02-15] MEDS ORDERED: NALOXONE 0.4 MG/ML 1 ML VIAL IV PRN (15:40)
--- NOTE | 2025-02-15 15:56 | XR ---
Fluoroscopy INDICATION: Pain FINDINGS: Fluoroscopy time: 1 minute 29 seconds. Total dose area product (DAP) in uGy*m?, mGy*cm? (or similar): 0.9049 Images obtained: 9. Images document closed reduction left ankle fracture IMPRESSION: 1. Documentation of fluoroscopy. [facility], , 02/15/2025 3:54 PM
[2025-02-15] MEDS: HYDROmorphone 0.5 MG/0.5 ML SYRINGE IVP STA (16:07)
[2025-02-15] MEDS: ceFAZolin 3 GM in SODIUM CHLORIDE 0.9% 100 ML IVPB ONE (16:08)
--- NOTE | 2025-02-15 16:20 | FL ---
Fluoroscopy INDICATION: Pain FINDINGS: Fluoroscopy time: 1 minute 29 seconds. Total dose area product (DAP) in uGy*m?, mGy*cm? (or similar): 0.9049 Images obtained: 0. Images document the procedure. IMPRESSION: 1. Documentation of fluoroscopy. [facility], , 02/15/2025 4:18 PM
[2025-02-15] MEDS: HYDROcodone/APAP 10-325MG 1 EACH TAB PO PRN (18:10)
[2025-02-15] MEDS: SENNOSIDES-DOCUSATE SODIUM 1 EACH TAB PO SCH (21:05)
[2025-02-15] MEDS: APIXABAN 2.5 MG TABLET PO SCH (21:05)
[2025-02-15] MEDS: HYDROmorphone 1 MG/ML 1 ML SYRINGE IVP PRN (21:05)
[2025-02-15] MEDS: HYDROcodone/APAP 5-325MG 1 EACH TAB PO PRN (23:34)
[2025-02-15] MEDS: ceFAZolin 3 GM in SODIUM CHLORIDE 0.9% 100 ML IVPB SCH (23:34)
[2025-02-16] MEDS: HYDROmorphone 0.5 MG/0.5 ML SYRINGE IVP PRN (06:54)
[2025-02-16 08:08] LABS: HCT 38.2 % (37.2-46.3); HGB 11.6 g/dL (12.0-15.0); MCH 28.6 pg (27.0-32.0); MCHC 30.4 g/dL (32.0-37.0); MCV 94.1 FL (80.0-97.0); NRBC Per 100 WBC 0 X 10*3/uL (0.00-0.01); Platelet Count 145 X 10*3/uL (140-440); RBC 4.06 X 10*6/uL (4.10-5.20); RDW 14.4 % (11.5-14.5); WBC 8.86 X 10*3/uL (4.50-10.00)
[2025-02-16] MEDS: SERTRALINE 100 MG TAB PO SCH (08:47)
--- NOTE | 2025-02-16 09:08 | US ---
"EXAMINATION TYPE: US abdomen limited DATE OF EXAM: 02/16/2025 COMPARISON: CT 02/15/25 CLINICAL INDICATION: Female, 64 years old with history of Elevated LFTs; LFTs, RUQ US recommended fro m CT yesterday TECHNIQUE: Grayscale and color Doppler imaging of the right upper quadrant. FINDINGS: EXAM MEASUREMENTS: Liver Length: 19.4 cm Gallbladder Wall: Surgically absent CBD: 0.9 cm, color Doppler imaging was utilized to isolate the common bile duct for measurement. Right Kidney: 9.5x4.9x4.7 cm MARKING DEVICES ASSEMBLER NOTES: Pancreas: 0.8x0.7x1.0cm hypoechoic area noted at the head of the pancreas superior to the GDA . Ilya tional workup is recommended Liver: hepatomegaly with possible hypertrophy of the caudate lobe, coarse echotexture, intrahepatic ductal dilation Gallbladder: Surgically absent, resected in 1980s Evidence for sonographic Blood's sign: No CBD: dilated Right Kidney: No hydronephrosis or masses seen exam limited by habitus and bowel gas IMPRESSION: Hypoechoic area within head of the pancreas. Neoplasm not excluded. This is not a typical cyst. Addit ional workup with MRI with contrast is recommended. 2. Hepatomegaly A Yellow level critical message alert has been initiated for Nori Gillis via the [employer] | Critical Results System on 02/16/2025 9:05 AM. This message alert has been sent to Nori Gillis via the preferences provided by the clinician for the receipt of Radiology Critical Findings. Message ID [id number]. [facility], , 02/16/2025 9:05 AM"
[2025-02-16 09:09] LABS: ALT 214 U/L (8-44); AST 180 U/L (13-35); Albumin 3.3 g/dL (3.8-4.9); Alkaline Phosphatase 257 U/L (41-126); Blood Urea Nitrogen 9.9 mg/dL (9.0-27.0); Calcium 8.4 mg/dL (8.7-10.3); Carbon Dioxide 20.7 mmol/L (21.6-31.8); Chloride 106 mmol/L (96-109); Globulin 2.2 g/dL (1.6-3.3); Glucose 100 mg/dL (70-110); Magnesium 1.9 mg/dL (1.5-2.4); Potassium 4.3 mmol/L (3.5-5.5); Sodium 138 mmol/L (135-145); Total Bilirubin 0.9 mg/dL (0.3-1.2); Total Protein 5.5 g/dL (6.2-8.2)
--- NOTE | 2025-02-16 11:24 | P.CONS ---
History of Present Illness - Reason for Consult Consult date: 02/16/25 Biliary ductal dilation with hyperbilirubinemia and transaminitis Requesting physician: Jose Mandel - Chief Complaint Ankle injury - History of Present Illness Is a pleasant 64-year-old female with a past medical history including obesity, previously elevated liver enzymes and hyperbilirubinemia, remote cholecystectomy in 1984, hypertension, COPD, anxiety with depression and schizoaffective disorder who had presented to the emergency department on 02/14/2025 status post a fall and left ankle pain. Imaging was completed she was diagnosed with a closed left trimalleolar ankle fracture dislocation, left proximal fibula fracture and was seen by orthopedics who underwent application of left ankle spanning external fixator as part of staged procedure and closed reduction left ankle fracture dislocation yesterday. On admission patient was noted to have elevated liver enzymes with increased yesterday and increase in total bilirubin. Patient states that she was diagnosed about a year ago with elevated liver enzymes and elevated bili Daniel which she had seen a process design engineer in the [place] area and had workup at that time was told that there was nothing to worry about but to follow-up within 6 months. Patient never followed up. She denies any history of alcoholism or known has cirrhosis of the liver. She denies any abdominal pain, she states she did have some nausea this morning. She had a CT of the abdomen pelvis secondary to the elevated liver enzymes that reported there may be some mild biliary dilation present with a prominent common bile duct. The gallbladder is not clearly identified. Consider additional evaluation with right upper quadrant abdomen ultrasound. Most recent labs WBC 5.3 hemoglobin 11.6 platelet count 153,000 INR 0.9 sodium 138 potassium 3.9 BUN 11 creatinine 0.7 total bilirubin 2.2 AST 408 ALT 272 alkaline phosphatase 183 Review of Systems REVIEW OF SYSTEMS: CARDIOPULMONARY: No chest pain or shortness of breath. Gastrointestinal: No abdominal pain. No nausea or vomiting. No hematemesis, coffee-ground emesis. No rectal bleeding, or melena. GENITOURINARY: No dysuria or hematuria. MUSCULOSKELETAL: Left ankle pain, ankle injury and status post surgery. SKIN: No rashes. No jaundice. ENDOCRINE: No chills, fevers. No excessive weight gain or loss. No polydipsia or polyuria. PSYCHIATRIC: Unremarkable. NEUROLOGY: No change in mental status. Denies dizziness, headache. ENT: Vision unremarkable. CONSTITUTIONAL: No recent weight loss. No fever, chills, night sweats. Past Medical History Past Medical History: COPD, Hyperlipidemia, Hypertension History of Any Multi-Drug Resistant Organisms: None Reported Past Surgical History: Appendectomy, Cholecystectomy, Joint Replacement, Orthopedic Surgery Additional Past Surgical History / Comment(s): Partial hysterectomy, double knee replacement Past Psychological History: Anxiety, Depression, Schizoaffective Disorder Smoking Status: Vaper Past Alcohol Use History: Daily Past Drug Use History: None Reported Medications and Allergies Home Medications Medication Instructions Recorded Confirmed Type HYDROcodone/APAP 5-325MG [[place] 1 tab PO Q4HR PRN 3 Days #18 tab 02/14/25 Rx 5-325] Cariprazine HCl [Vraylar] 4.5 mg PO DAILY 02/15/25 02/15/25 History Losartan Potassium 50 mg PO DAILY 02/15/25 02/15/25 History Sertraline [Zoloft] 200 mg PO DAILY 02/15/25 02/15/25 History Valbenazine Tosylate [Ingrezza] 80 mg PO DAILY 02/15/25 02/15/25 History buPROPion XL [Wellbutrin XL] 300 mg PO DAILY 02/15/25 02/15/25 History methocarbamoL [Robaxin-750] 1,500 mg PO QID PRN 02/15/25 02/15/25 History Allergies Allergy/AdvReac Type Severity Reaction Status Date / Time Botulinum Toxin Allergy Anaphylaxis Verified 02/15/25 10:34 diclofenac [From Cataflam] Allergy Anaphylaxis Verified 02/15/25 10:34 risperidone [From Risperdal] Allergy Anaphylaxis Verified 02/15/25 10:34 gabapentin AdvReac Unknown Verified 02/15/25 10:34 trazodone AdvReac Unknown Verified 02/15/25 10:34 Physical Exam Vitals: Vital Signs Temp Pulse Pulse Resp BP BP Pulse Ox 02/16/25 07:15 98.1 F 85 18 93/63 02/16/25 00:57 98.2 F 73 18 90/72 96 02/15/25 22:52 14 02/15/25 21:12 96 02/15/25 19:25 97.9 F 91 18 101/64 98 02/15/25 16:30 92 16 94/69 100 02/15/25 16:15 95 16 96/65 99 02/15/25 16:00 98 16 93/65 98 02/15/25 15:45 104 H 17 103/55 97 02/15/25 15:30 108 H 15 88/65 100 02/15/25 15:23 97.0 F L 104 H 14 94/40 99 02/15/25 13:38 98.0 F 75 16 102/49 97 Intake and Output 02/15/25 02/16/25 02/16/25 22:59 06:59 14:59 Intake Total 700 Output Total 25 Balance 675 Intake: IV 700 Output: Estimated Blood Loss 25 Other: Voiding Method External Catheter # Voids 450 2 # Bowel Movements 0 General appearance: The patient is alert, oriented, appears in no acute distress. Morbidly obese. HET: Head is normocephalic and atraumatic. Conjunctiva pink. Sclera anicteric. Neck: Supple without lymphadenopathy. Trachea midline. Heart: Regular. Lungs: Equal expansion, normal respiratory effort. Abdomen: Soft, nontender, nondistended. Skin: No rashes. No jaundice. Extremities: Left ankle with dressing and hardware as well as fixation brace in place. Neurological: No focal deficits. Alert and oriented x3. Results CBC & Chem 7: 02/16/25 03:24 02/16/25 03:24 Labs: Abnormal Lab Results - Last 24 Hours (Table) 02/15/25 02/15/25 Range/Units 08:48 08:48 RBC 3.94 L (4.10-5.20) 10*6/uL Hgb 11.6 L (12.0-15.0) g/dL Hct 36.5 L (37.2-46.3) % MCHC 31.8 L (32.0-37.0) g/dL Total Bilirubin 2.2 H (0.2-1.3) mg/dL AST 408 H (14-36) U/L ALT 272 H (4-34) U/L Alkaline Phosphatase 183 H (38-126) U/L Total Protein 5.7 L (6.3-8.2) g/dL Albumin 3.3 L (3.5-5.0) g/dL Comments: Abdominal ultrasound reports hepatomegaly with possible hypertrophy of the caudate lobe, coarse echotexture, intrahepatic ductal dilation. Gallbladder surgically absent common bile duct dilated at 0.9 cm. Hyperechoic area within the head of the pancreas. Neoplasm not excluded. This is not a typical cyst. Additional workup with MRI with contrast is recommended. Hepatomegaly. Assessment and Plan (1) Transaminitis Narrative/Plan: 64-year-old female presenting with ankle injury status post surgery noted to have elevated LFTs on admission trending up with elevated total bilirubin peaked at 2.2. This in a patient who admits to previous elevated LFTs and had seen a process design engineer about a year and a half ago [facility] who has not followed up as directed. States she was told there was nothing to worry about but that she did need GI follow-up in about 6 weeks and had never followed up. She denies any abdominal pain nausea or vomiting. She does have a history of a cholecystectomy in 1984 secondary to cholelithiasis. She had a CT of the abdomen pelvis with mild ductal dilation and stated hepatomegaly with normal pancreas. Abdominal ultrasound obtained reporting hepatomegaly and coarse echotexture, as well as hyperechoic area within the head of the pancreas. Patient is poor historian not clear previous findings with her liver but states that her workup was okay and was supposed to follow-up in 6 weeks. Elevated LFTs and bilirubin may be medication induced. Difficult to say at this time as patient has had previous workup with her process design engineer. Likely some component of hepatic steatosis secondary to obesity. Further evaluation of pancreatic head lesion can be done as an outpatient however likely will not need MRI as CT does not report any evidence of pancreatic head lesion which is a more sensitive test than ultrasound. Outpatient follow-up with her process design engineer. Current Visit: Yes Status: Acute Code(s): R74.01 - ELEVATION OF LEVELS OF LIVER TRANSAMINASE LEVELS SNOMED Code(s): 191671331 (2) Hyperbilirubinemia Current Visit: Yes Status: Acute Code(s): E80.6 - OTHER DISORDERS OF BILIRUBIN METABOLISM SNOMED Code(s): 18026280 (3) Morbid obesity with BMI of 45.0-49.9, adult Current Visit: Yes Status: Acute Code(s): E66.01 - MORBID (SEVERE) OBESITY DUE TO EXCESS CALORIES; Z68.42 - BODY MASS INDEX [BMI] 45.0-49.9, ADULT SNOMED Code(s): 804165783 (4) History of cholecystectomy Current Visit: Yes Status: Acute Code(s): Z90.49 - ACQUIRED ABSENCE OF OTHER SPECIFIED PARTS OF DIGESTIVE TRACT SNOMED Code(s): 882508628 (5) Ankle fracture Current Visit: Yes Status: Acute Code(s): S82.899A - OTH FRACTURE OF UNSP LOWER LEG, INIT FOR CLOS FX SNOMED Code(s): 18238841 (6) Fibula fracture Current Visit: Yes Status: Acute Code(s): S82.409A - UNSP FRACTURE OF SHAFT OF UNSP FIBULA, INIT FOR CLOS FX SNOMED Code(s): 81349533 Plan: 1. Continue symptomatic and supportive care 2. Will obtain acute hepatitis panel, Daily CMP 3. Ultrasound of the abdomen ordered and reviewed 4. Recommend weight loss 5. Continue with recommendations from orthopedics 7. No further workup at this time 8. Patient will need outpatient follow-up with her process design engineer in the next 1 to 2 weeks. This was discussed with both patient and her family at the bedside. Thank you for this consultation, patient is cleared from gastroenterology for discharge. Dr. Jeaneth Guo I agree with the dictator's note, documented as a scribe by Nori Overotn.
--- NOTE | 2025-02-16 15:35 | P.PN ---
Subjective Doing well in regards to her ankle. Objective - Vital Signs Vital signs: Vital Signs Temp 97.7 F 02/16/25 14:13 Pulse 96 02/16/25 14:13 Resp 18 02/16/25 14:13 BP 90/62 02/16/25 14:13 Pulse Ox 90 L 02/16/25 14:13 FiO2 Intake & Output 02/15/25 02/16/25 02/16/25 18:59 06:59 18:59 Intake Total 1750 Output Total 25 Balance 1725 Intake: IV 1750 Output: Estimated Blood Loss 25 Other: Voiding Method External Catheter External Catheter # Voids 450 2 # Bowel Movements 0 - Exam Patient is sitting up at bedside in the chair. Focused exam of the left leg was conducted. Her external fixator is in place. An Ravindra wrap is covering the leg. There is no drainage. The tips of her toes are warm and well-perfused with brisk capillary refill. She can actively plantarflex and dorsiflex her ankle and her toes. - Labs CBC & Chem 7: 02/16/25 03:24 02/16/25 03:24 Labs: Abnormal Lab Results - Last 24 Hours (Table) 02/16/25 02/16/25 Range/Units 03:24 03:24 RBC 4.06 L (4.10-5.20) X 10*6/uL Hgb 11.6 L (12.0-15.0) g/dL MCHC 30.4 L (32.0-37.0) g/dL Carbon Dioxide 20.7 L (21.6-31.8) mmol/L BUN/Creatinine Ratio 11.00 L (12.00-20.00) Ratio Calcium 8.4 L (8.7-10.3) mg/dL AST 180 H (13-35) U/L ALT 214 H (8-44) U/L Alkaline Phosphatase 257 H (41-126) U/L Total Protein 5.5 L (6.2-8.2) g/dL Albumin 3.3 L (3.8-4.9) g/dL Albumin/Globulin Ratio 1.50 L (1.60-3.17) Ratio Assessment and Plan Assessment: POD #1 status post left ankle external fixator Plan: Strict nonweightbearing left lower extremity. Leave surgical dressing and external fixator in place. DVT prophylaxis with Eliquis twice daily. Medical consultants assistance appreciated. Awaiting approval for discharge to subacute rehab. The patient is presently trying to find an orthopedic surgeon closer to home in [place] for definitive fixation.
--- NOTE | 2025-02-16 15:57 | P.PN ---
Subjective Progress Note Date: 02/16/25 Hospital Course: Patient is a pleasant 64-year-old female with a past medical history of hypertension, COPD, anxiety with depression, schizoaffective disorder, and nicotine use via vaping. She presented to our facility on 02/14/2025 status post fall with left ankle pain. She underwent evaluation in the emergency department. Vital signs upon arrival show blood pressure 101/85, heart rate 107, respiratory rate 18, temp 98.0 F, and SpO2 100% on room air. X-ray left tib-fib showing fracture of the distal medial lateral malleoli with subluxation of the talus laterally and an additional oblique fracture of the proximal diaphyseal fibula. X-ray ankle completed showing fracture of the medial and tibial malleoli are with near complete dislocation of the talus laterally. At tempts were made at closed reduction in the emergency department unsuccessful. Patient underwent a CT left ankle which revealed talus remains laterally subluxed about 13 mm and dorsally subluxed about 9 mm along with trimalleolar fractures. Patient was admitted under orthopedic surgery team and we were consulted for medical management. Labs were completed and reviewed. CBC showing normocytic anemia with hemoglobin of 11.8. Coagulation profile showing a low PTT of 20.3. BMP showing sodium 136 and glucose of 100. Liver profile showing transaminitis with AST of 380, ALT of 142, and alkaline phosphatase of 145. Patient is scheduled to undergo ORIF of left ankle later today with Dr. Braga. Physical exam: Patient seen and fully evaluated bedside. She was resting comfortably at this time. Reports mild postoperative pain in left ankle. Postoperative dressing, pins and stabilization device in place. Left lower extremity elevated on pillow. Vital signs reviewed and stable. General: Nontoxic, no distress and appears stated age. Derm: Skin warm and dry, normal coloration for ethnicity. Head: Atraumatic, normocephalic and symmetric. Eyes: EOM's intact, no lid lag, and anicteric sclera Mouth: no lip lesions, mucus membranes moist Cardiovascular: regular rate and rhythm with normal S1S2, no murmur, positive posterior tibial pulses bilaterally, and cap refill < 2 seconds. Lungs: Respirations even, regular, and unlabored on room air. Lungs CTA bilaterally, no rhonchi, no rales, no wheezing, and no accessory muscle usage. Abdominal: soft, nontender to palpation, no guarding, no appreciable organomegaly Ext: No gross muscle atrophy, no edema, no contractures. Left lower extremity elevated on pillow with dressing in place and external fixator device with pins/stabilization device. Neuro: Speech clear, face symmetrical and CN II-XII grossly intact with no noted focal neuro deficits Psych: Alert and oriented to person, place, time, and situation. Appropriate and pleasant affect. Assessment and Plan of Care: Trimalleolar fracture with complete dislocation and proximal diaphyseal fibula post application of left ankle spanning external fixator device - Management per primary admitting orthopedic surgery team including DVT prophylaxis, pain management, advancement of activity, and wound/dressing/fixator device managing. Hyperbilirubinemia with transaminitis, unclear etiology - Patient reports she was previously told years ago that she had some elevation in her liver enzymes but never followed up. She denies having any abdominal pain or discomfort but did report only mild tenderness upon palpation to epigastric region. - CT abdomen and pelvis which revealed mild biliary dilation with a prominent common bile duct. - Gastroenterology following and discussed plan of care with gastroenterology CROWNING INSPECTOR stating no need for ERCP at this time recommending abdominal ultrasound for further evaluation. Abdominal ultrasound has been completed and currently pending results. Hypertension Vital signs currently stable with blood pressure 105/68 heart rate of 86. Continue to monitor vital signs closely and patient to continue daily medication regimen with losartan 50 mg daily. Anxiety with depression Schizoaffective disorder Continue daily medication regimen with sertraline 200 mg daily, Vraylar 4.5 mg daily, Wellbutrin 300 mg daily, and Ingrezza 80 mg daily. COPD, not in acute exacerbation - Patient denies use of home inhalers. Does admit to continued vaping but declines wanting nicotine patch at this time. - Encourage use of incentive spirometry during postoperative period. Data and imaging reviewed: Labs reviewed. CBC showing stable normocytic anemia with hemoglobin of 11.6. BMP showing hypocarbia with bicarb of 20.7 otherwise normal findings. Blood glucose 100. A.m. 1.9. Liver profile showing total bilirubin of 0.9, AST 180, ALT of 214, and alkaline phosphatase of 257 Vital signs reviewed. Blood pressure 96/63, heart rate 80, respiratory rate 14, temp 98.2 F, and SpO2 of 93% on room air. Thank you for allowing us to participate in the care of this pleasant patient. Do not hesitate to contact us with questions. Someone can be reached from the [facility] hospitalist group all hours of the day at [phone] or via perfect serve. Patient was seen independently by Nurse Practitioner. This document was prepared using [employer] dictation software. Please allow for errors in field artillery operations man while rare they do occur. Jose Mandel NP rendered care for this patient independently, reviewed the findings and plan as documented in the note above and agree with plan. I did not physically speak with or examine the patient on this date. Objective - Vital Signs Vital signs: Vital Signs Temp 98.1 F 02/16/25 07:15 Pulse 85 02/16/25 07:15 Resp 18 02/16/25 07:15 BP 93/63 02/16/25 07:15 Pulse Ox 96 02/16/25 00:57 FiO2 Intake & Output 02/15/25 02/16/25 02/16/25 18:59 06:59 18:59 Intake Total 1750 Output Total 25 Balance 1725 Intake: IV 1750 Output: Estimated Blood Loss 25 Other: Voiding Method External Catheter External Catheter # Voids 450 2 # Bowel Movements 0 - Labs CBC & Chem 7: 02/16/25 03:24 02/16/25 03:24 Labs: Abnormal Lab Results - Last 24 Hours (Table) 02/15/25 02/15/25 02/16/25 Range/Units 08:48 08:48 03:24 RBC 3.94 L 4.06 L (4.10-5.20) 10*6/uL Hgb 11.6 L 11.6 L (12.0-15.0) g/dL Hct 36.5 L (37.2-46.3) % MCHC 31.8 L 30.4 L (32.0-37.0) g/dL Total Bilirubin 2.2 H (0.2-1.3) mg/dL AST 408 H (14-36) U/L ALT 272 H (4-34) U/L Alkaline Phosphatase 183 H (38-126) U/L Total Protein 5.7 L (6.3-8.2) g/dL Albumin 3.3 L (3.5-5.0) g/dL
[2025-02-16 16:49] LABS: Hepatitis A Antibody IgM Nonreactive (Nonreactive); Hepatitis B Core IgM Nonreactive (Nonreactive); Hepatitis B Surface Antigen Nonreactive (Nonreactive); Hepatitis C IgG Antibody Nonreactive (Nonreactive)
[2025-02-17] MEDS: PANTOPRAZOLE 40 MG TABLET PO SCH (06:31)
--- NOTE | 2025-02-17 09:39 | P.DS ---
Providers Date of admission: 02/14/25 22:21 Attending physician: Owen Braga Consults: 02/14/25 22:23 Consult Physician Routine Consulting Provider: Harjinder Sanchez Consult Reason/Comments: medical management Do you want consulting provider notified?: Yes 02/15/25 12:24 Consult Physician Urgent Consulting Provider: Nicky Guo Consult Reason/Comments: biliary ductal dilation with hyperbilirubinemia and transaminitis Do you want consulting provider notified?: Yes Primary care physician: Igor Silva DO Hospital Course: HPI: The patient is a very pleasant 64-year-old female with a medical history significant for having a BMI of 48.4 and schizoaffective disorder who was admitted under my care with a displaced left trimalleolar ankle fracture. The patient states that yesterday she was trying to get in her car when she fell. She immediately injured her left ankle. She was brought to the ER where x-rays showed an ankle fracture dislocation. After several unsuccessful attempts at closed reduction and splinting orthopedics was called. Both ER doctor and Dr. Braga felt that due to the patient's unstable ankle fracture and BMI she was unsafe to discharge home. Dr. Braga met with the patient this afternoon to discuss her injury and treatment. The patient normally lives at home with her son. She has bilateral knee replacements done 8 years ago and says they feel "unsteady." She denies alcohol use. On 02/15/2025 patient underwent Application of left ankle spanning external fixator as part of a staged procedure. Patient tolerated the procedure well. Patient was transferred to the orthopedic floor. Patient's internal medical problems were managed by internal medicine in the perioperative period. Patient was examined at bedside this morning. Patient d enied acute events overnight. Patient states they continue to have left ankle pain. Patient states that her pain is controlled with oral [place]. Patient is sitting up in bed. Focused exam of the left leg was conducted. Her external fixator is in place. An Ravindra wrap is covering the leg. There is no drainage. The tips of her toes are warm and well-perfused with brisk capillary refill. She can actively plantarflex and dorsiflex her ankle and her toes. PLAN: The patient is to be non-weight bearing on her left leg. DVT prophylaxis with Eliquis 2.5 mg BID given the patient's BMI and history of fracture. Leave dressing in place. The patient is ok to discharge from an orthopaedic standpoint. Disposition: Patient will be transferred to short acute rehab. Anticipate later this afternoon or tomorrow. Patient will need to be cleared by internal medicine prior to discharge. We appreciate internal medicine with medical management of this patient. Paper prescription for oral [place] was left on the patient's chart. Start form was placed in the patient's chart. Assessment: status post 02/15/2025 Application of left ankle spanning external fixator as part of a staged procedure by Dr. Braga. Closed left trimalleolar ankle fracture dislocation Left proximal fibula fracture BMI 48.4 Prior left total knee replacement Schizoaffective disorder Hyperbilirubinemia with transaminitis, unclear etiology Hypertension Anxiety with depression COPD, not in acute exacerbation Patient Condition at Discharge: Good Plan - Discharge Summary Discharge Rx Participant: Yes New Discharge Prescriptions: New HYDROcodone/APAP 5-325MG [[place] 5-325] 1 tab PO Q4HR PRN 3 Days #18 tab PRN Reason: Pain No Action Valbenazine Tosylate [Ingrezza] 80 mg PO DAILY Sertraline [Zoloft] 200 mg PO DAILY buPROPion XL [Wellbutrin XL] 300 mg PO DAILY methocarbamoL [Robaxin-750] 1,500 mg PO QID PRN PRN Reason: Muscle Pain Cariprazine HCl [Vraylar] 4.5 mg PO DAILY Losartan Potassium 50 mg PO DAILY Discharge Medication List HYDROcodone/APAP 5-325MG [[place] 5-325] 1 tab PO Q4HR PRN 3 Days #18 tab 02/14/25 [Rx] Cariprazine HCl [Vraylar] 4.5 mg PO DAILY 02/15/25 [History] Losartan Potassium 50 mg PO DAILY 02/15/25 [History] Sertraline [Zoloft] 200 mg PO DAILY 02/15/25 [History] Valbenazine Tosylate [Ingrezza] 80 mg PO DAILY 02/15/25 [History] buPROPion XL [Wellbutrin XL] 300 mg PO DAILY 02/15/25 [History] methocarbamoL [Robaxin-750] 1,500 mg PO QID PRN 02/15/25 [History] Follow up Appointment(s)/Referral(s): Igor Silva DO [Primary Care Provider] - 1-2 days Owen Braga MD [Medical Doctor] - 1-2 days Patient Instructions/Handouts: Ankle Fracture (ED) Activity/Diet/Wound Care/Special Instructions: If there is any problem in following up with your orthopedic physician, I have listed the orthopedic doctor on-call for our facility, please call them or return to the emergency department if there is any difficulty. Strict nonweightbearing left lower extremity. Leave surgical dressing and external fixator in place. Do not get wet. DVT prophylaxis with Eliquis twice daily. While taking [place] or Percocet for pain take a stool softener (Ex: Colace) and drink lots of water. Please contact the office with any questions or concerns [phone] Discharge Disposition: TRANSFER TO SNF/ECF
--- NOTE | 2025-02-17 12:54 | P.PN ---
Subjective Progress Note Date: 02/17/25 Principal diagnosis: Elevated LFTs, biliary dilation This is a pleasant 64-year-old female with a past medical history including obesity, previously elevated liver enzymes and hyperbilirubinemia, remote cholecystectomy in 1984, hypertension, COPD, anxiety with depression and narda izoaffective disorder who had presented to the emergency department on 02/14/2025 status post a fall and left ankle pain. Imaging was completed she was diagnosed with a closed left trimalleolar ankle fracture dislocation, left proximal fibula fracture and was seen by orthopedics who underwent application of left ankle spanning external fixator as part of staged procedure and closed reduction left ankle fracture dislocation yesterday. On admission patient was noted to have elevated liver enzymes with increased yesterday and increase in total bilirubin. Patient states that she was diagnosed about a year ago with elevated liver enzymes and elevated bili Daniel which she had seen a marine steamfitter in the [place] area and had workup at that time was told that there was nothing to worry about but to follow-up within 6 months. Patient never followed up. She denies any history of alcoholism or known has cirrhosis of the liver. She denies any abdominal pain, she states she did have some nausea this morning. She had a CT of the abdomen pelvis secondary to the elevated liver enzymes that reported there may be some mild biliary dilation present with a prominent common bile duct. The gallbladder is not clearly identified. Consider additional evaluation with right upper quadrant abdomen ultrasound. Most recent labs WBC 5.3 hemoglobin 11.6 platelet count 153,000 INR 0.9 sodium 138 potassium 3.9 BUN 11 creatinine 0.7 total bilirubin 2.2 AST 408 ALT 272 alkaline phosphatase 183 02/17/2025 Patient seen and examined today as a follow-up. No abdominal pain nausea or vomiting. Plan is for discharge to rehab. Hepatitis panel nonreactive. Objective - Vital Signs Vital signs: Vital Signs Temp 98.5 F 02/17/25 01:59 Pulse 87 02/17/25 01:59 Resp 16 02/17/25 01:59 BP 102/67 02/17/25 01:59 Pulse Ox 97 02/17/25 01:59 FiO2 Intake & Output 02/16/25 02/17/25 02/17/25 18:59 06:59 18:59 Output Total 600 650 Balance -600 -650 Output: Urine 600 650 Other: Voiding Method External Catheter - Exam General appearance: The patient is alert, oriented, appears in no acute distress. Morbidly obese. HET: Head is normocephalic and atraumatic. Conjunctiva pink. Sclera anicteric. Neck: Supple without lymphadenopathy. Abdomen: Soft, nontender, nondistended. Extremities: Left leg in Ravindra wrap and immobilizer. Skin: No rashes, no jaundice Neurological: No focal deficits. Alert and oriented. - Labs CBC & Chem 7: 02/16/25 03:24 02/16/25 03:24 Labs: Abnormal Lab Results - Last 24 Hours (Table) 02/16/25 Range/Units 03:24 Carbon Dioxide 20.7 L (21.6-31.8) mmol/L BUN/Creatinine Ratio 11.00 L (12.00-20.00) Ratio Calcium 8.4 L (8.7-10.3) mg/dL AST 180 H (13-35) U/L ALT 214 H (8-44) U/L Alkaline Phosphatase 257 H (41-126) U/L Total Protein 5.5 L (6.2-8.2) g/dL Albumin 3.3 L (3.8-4.9) g/dL Albumin/Globulin Ratio 1.50 L (1.60-3.17) Ratio Assessment and Plan (1) Transaminitis Narrative/Plan: 64-year-old female presenting with ankle injury status post surgery noted to have elevated LFTs on admission trending up with elevated total bilirubin peaked at 2.2. This in a patient who admits to previous elevated LFTs and had seen a marine steamfitter about a year and a half ago [facility] who has not followed up as directed. States she was told there was nothing to worry about but that she did need GI follow-up in about 6 weeks and had never followed up. She denies any abdominal pain nausea or vomiting. She does have a history of a cholecystectomy in 1984 secondary to cholelithiasis. She had a CT of the abdomen pelvis with mild ductal dilation and stated hepatomegaly with normal pancreas. Abdominal ultrasound obtained reporting hepatomegaly and coarse echotexture, as well as hyperechoic area within the head of the pancreas. Madelin ent is poor historian not clear previous findings with her liver but states that her workup was okay and was supposed to follow-up in 6 weeks. Elevated LFTs and bilirubin may be medication induced. Difficult to say at this time as patient has had previous workup with her marine steamfitter. Likely some component of hepatic steatosis secondary to obesity. Further evaluation of pancreatic head lesion can be done as an outpatient however likely will not need MRI as CT does not report any evidence of pancreatic head lesion which is a more sensitive test than ultrasound. Outpatient follow-up with her marine steamfitter. Current Visit: Yes Status: Acute Code(s): R74.01 - ELEVATION OF LEVELS OF LIVER TRANSAMINASE LEVELS SNOMED Code(s): 336317043 (2) Hyperbilirubinemia Current Visit: Yes Status: Acute Code(s): E80.6 - OTHER DISORDERS OF BILIRUBIN METABOLISM SNOMED Code(s): 27303533 (3) Morbid obesity with BMI of 45.0-49.9, adult Current Visit: Yes Status: Acute Code(s): E66.01 - MORBID (SEVERE) OBESITY DUE TO EXCESS CALORIES; Z68.42 - BODY MASS INDEX [BMI] 45.0-49.9, ADULT SNOMED Code(s): 964147141 (4) History of cholecystectomy Current Visit: Yes Status: Acute Code(s): Z90.49 - ACQUIRED ABSENCE OF OTHER SPECIFIED PARTS OF DIGESTIVE TRACT SNOMED Code(s): 084383381 (5) Ankle fracture Current Visit: Yes Status: Acute Code(s): S82.899A - OTH FRACTURE OF UNSP LOWER LEG, INIT FOR CLOS FX SNOMED Code(s): 19395686 (6) Fibula fracture Current Visit: Yes Status: Acute Code(s): S82.409A - UNSP FRACTURE OF SHAFT OF UNSP FIBULA, INIT FOR CLOS FX SNOMED Code(s): 32620521 Plan: 1. Continue symptomatic and supportive care 2. Acute hepatitis panel nonreactive 3. Ultrasound of the abdomen ordered and reviewed 4. Recommend weight loss 5. Continue with recommendations from orthopedics 7. No further workup at this time 8. Patient will need outpatient follow-up with her marine steamfitter in the next 1 to 2 weeks. This was discussed with both patient and her family at the bedside. Thank you for this consultation, patient is cleared from gastroenterology for discharge. We will sign off at this time. Dr. Jeaneth Guo I agree with the dictator's note, documented as a scribe by Nori Overton.
[2025-02-17 13:56] VITALS: BP 107/66; PULSE 90; RESP 16; TEMP 97.5
--- NOTE | 2025-02-17 14:28 | P.PN ---
Subjective Progress Note Date: 02/17/25 Subjective: Patient seen and examined at bedside. No acute events overnight. Pertinent positives and negatives as discussed above, a complete review of systems was performed and all other systems are negative. Vitals Signs Reviewed. General: Nontoxic, no distress, appears at stated age Derm: Warm, dry Head: Atraumatic, normocephalic, symmetric Eyes: EOMI, no lid lag, anicteric sclera Mouth: No lip lesion, mucus membranes moist Cardiovascular: S1S2 reg, no murmur Lungs: CTA bilateral, no rhonchi, no rales, no accessory muscle use Abdominal: Soft, nontender to palpation, no guarding, no appreciable organomegaly Ext: Left ankle elevated on pillow with dressing in place and external fixator device present Neuro: CN II-XI grossly intact, no focal neuro deficits Psych: Alert, oriented, appropriate affect Data Reviewed Today: Pertinent Labs: Hepatitis panel negative. Imaging: Abdominal ultrasound Assessment and Plan: Trimalleolar fracture with complete dislocation and proximal diaphyseal fibula post application of left ankle spanning external fixator device - Management per primary admitting orthopedic surgery team including DVT prophylaxis, pain management, advancement of activity, and wound/dressing/fixator device managing. Hyperbilirubinemia Transaminitis Pancreatic mass concerning for malignancy - GI recommending outpatient follow-up - Patient would need MRI to further characterize the pancreatic mass - Patient already has an appointment set up with GI Hypertension Continue losartan 50 daily Anxiety with depression Schizoaffective disorder Continue daily medication regimen with sertraline 200 mg daily, Vraylar 4.5 mg daily, Wellbutrin 300 mg daily, and Ingrezza 80 mg daily. COPD, not in acute exacerbation - Patient denies use of home inhalers. Does admit to continued vaping but declines wanting nicotine patch at this time. - Encourage use of incentive spirometry during postoperative period. Patient is medically optimized for discharge Thank you for allowing us to participate in the care of this pleasant patient. Do not hesitate to contact us with questions. Someone can be reached from the [facility] hospitalist group all hours of the day at [phone] or via perfect serve. Objective - Vital Signs Vital signs: Vital Signs Temp 97.5 F L 02/17/25 13:00 Pulse 90 02/17/25 13:00 Resp 16 02/17/25 13:00 BP 107/66 02/17/25 13:00 Pulse Ox 96 02/17/25 07:40 FiO2 Intake & Output 02/16/25 02/17/25 02/17/25 18:59 06:59 18:59 Output Total 600 650 Balance -600 -650 Output: Urine 600 650 Other: Voiding Method External Catheter External Catheter - Labs CBC & Chem 7: 02/16/25 03:24 02/16/25 03:24
== END 2025-02-17 20:24 ==
LOC: EC 16:53 → 4SSUR 22:21 → INTOOBSV 22:21 → 4SSUR 23:54
PROVIDERS: ADMIT Orthopaedic Surgery; ATTEND Orthopaedic Surgery
DX: S82.852A Displaced trimalleolar fracture of left lower leg, initial encounter for closed fracture (principal); W01.0XXA Fall on same level from slipping, tripping and stumbling without subsequent striking against object, initial encounter; E66.01 Morbid (severe) obesity due to excess calories; R74.01 Elevation of levels of liver transaminase levels; E78.5 Hyperlipidemia, unspecified; F25.9 Schizoaffective disorder, unspecified; F32.A Depression, unspecified; F41.9 Anxiety disorder, unspecified; I10 Essential (primary) hypertension; J44.9 Chronic obstructive pulmonary disease, unspecified; K86.9 Disease of pancreas, unspecified; Z68.42 Body mass index [BMI] 45.0-49.9, adult; Z96.653 Presence of artificial knee joint, bilateral; Z79.899 Other long term (current) drug therapy; Z87.891 Personal history of nicotine dependence; Z88.8 Allergy status to other drugs, medicaments and biological substances
CPT/HCPCS: 96376; 96375 ×2; 96374; 99285; 27752; 97161; 97166; 80053 ×3; 80074; 83735 ×2; 85025; 85027 ×2; 85610; 85730; 73590; 73600; 73610; 76705; 74176; 73700; 27818; 20690; G0378 ×4; C1713; J0330; J2270 ×2; J0690 ×3; J2405 ×2; J3010; J1171 ×3; J2704 ×2; J2003; J2371; J1596; J2470 ×2